=== PATIENT | male | born 1965 | race Caucasian/White ===

== ENCOUNTER 2024-12-29 14:40 | Emergency (ER) | payer MEDICAID ==
[~2024-12-29] VITALS: Ht 182.9 cm; Wt 104.7 kg
[~2024-12-29 14:40] MED LIST: ALLO-97 PO; OLAN10TA74 PO; TRAZ-257 PO
[2024-12-29 14:52] VITALS: TEMP 97.7
[2024-12-29 15:26] LABS: PLATELET COUNT (AUTO) 299 K/uL (150-450); RED BLOOD CELL COUNT(AUTO) 3.64 MIL/uL (4.50-5.90); RED CELL DISTRIBUTION WIDTH 13.9 % (11.5-14.5); WHITE BLOOD COUNT (AUTO) 7.7 K/uL (4.5-11.0)
[2024-12-29 15:35] LABS: COVID AG,FIA SOURCE NPH
[2024-12-29 15:36] LABS: CALCIUM, TOTAL 8.8 mg/dL (8.8-10.5); CREATININE 0.55 mg/dL (0.60-1.30); GLOMERULAR FILTR. RATE CALC > 60 mL/min (>60); GLUCOSE,RANDOM 114 mg/dL (70-110); SODIUM SERUM 140 mmol/L (136-145); UREA NITROGEN, BLOOD 10 mg/dL (7-18)
[2024-12-29 15:43] LABS: APPEARANCE,URINE CLEAR (CLEAR); GLUCOSE, URINE (UA) NEGATIVE (NEGATIVE); LEUKOCYTE ESTERASE ,URINE NEGATIVE (NEGATIVE); NITRATE,URINE NEGATIVE (NEGATIVE); OCCULT BLOOD,URINE NEGATIVE (NEGATIVE); PH,URINE DRUG SCREEN 6.0 (5.0-8.0); SPECIFIC GRAVITIY, URINE 1.008 (1.003-1.030)
[2024-12-29 15:48] LABS: ASPARTATE AMINOTRANSFERASE 19 U/L (15-37); TOTAL PROTEIN, SERUM 6.5 g/dL (6.4-8.2)
[2024-12-29 16:12] LABS: ALCOHOL, BLOOD (SERUM) < 3 mg/dL (0-10)
[2024-12-29 16:25] LABS: SARS-COV2 (COVID) ANTIGEN,FIA Negative (Negative)
[2024-12-29 16:26] LABS: ALCOHOL, URINE DRUG SCREEN NEGATIVE (NEGATIVE); AMPHET/METH SCREEN,URINE NEGATIVE (NEGATIVE); BARBITURATE SCREEN, URINE NEGATIVE (NEGATIVE); CANNABINOID SCREEN,URINE NEGATIVE (NEGATIVE); COCAINE SCREEN,URINE NEGATIVE (NEGATIVE); METHADONE SCREEN, URINE NEGATIVE (NEGATIVE)
[2024-12-29 16:50] VITALS: BP 132/80; PULSE 97; RESP 18; O2SAT 97
[2024-12-29] MEDS: FUROSEMIDE 20 MG TABLET PO ONE (17:16)
== END 2024-12-29 18:52 ==
LOC: EMS 14:40
DX: F20.9 Schizophrenia, unspecified (principal); R60.0 Localized edema; F31.9 Bipolar disorder, unspecified; R45.1 Restlessness and agitation; I10 Essential (primary) hypertension; Z88.5 Allergy status to narcotic agent; Z20.822 Contact with and (suspected) exposure to COVID-19; Z79.899 Other long term (current) drug therapy; Z88.0 Allergy status to penicillin; Z91.09 Other allergy status, other than to drugs and biological substances
CPT/HCPCS: 99284; 87426; 80053; 81003; 83880; 84443; 85025; 36415; 80307; G0480